=== PATIENT | female | born 1965 | race Caucasian/White ===

== ENCOUNTER 2018-01-17 14:46 | Emergency (ER) | payer OTHER ==
[~2018-01-17] VITALS: Ht 162.6 cm; Wt 113.6 kg
[2018-01-17 14:56] VITALS: BP 140/70; PULSE 67; RESP 18; O2SAT 99
[2018-01-17] MEDS ORDERED: SODIUM CHLORIDE 0.9% FLUSH 10 ML FLUSH IVF PRN (15:00)
[2018-01-17 15:03] VITALS: BP 140/70; PULSE 66; RESP 18; TEMP 98.9; O2SAT 96
--- NOTE | 2018-01-17 15:26 | RADRPT ---
EXAM DATE: 01/17/2018 3:15 PM EDT AGE/SEX: 52 years / Female INDICATIONS: Chest pain, palpitations. CLINICAL DATA: This is the patient's initial encounter. Patient reports that signs and symptoms have been present for 1 day and indicates a pain score of 2/10. MEDICAL/SURGICAL HISTORY: Hypercholesterolemia. Hypertension. Gastroesophageal reflux disease . A-fib. section. COMPARISON: No prior exams available for comparison. FINDINGS: A single AP view of the chest demonstrates the lungs to be symmetrically aerated without evidence of mass, infiltrate or effusion. The cardiomediastinal contours are unremarkable. Osseous structures a re intact. CONCLUSION: No active disease. Electronically signed by: Russell Flores MD 01/17/2018 3:24 PM EDT
[2018-01-17 15:35] LABS: AUTOMATED NEUTROPHIL # 5.9 TH/MM3 (1.8-7.7); BASOPHIL # 0.1 TH/MM3 (0-0.2); BASOPHIL % 0.7 % (0.0-2.0); EOSINOPHIL # 0.5 TH/MM3 (0-0.4); EOSINOPHIL % 5.9 % (0.0-4.0); HEMOGLOBIN 14.1 GM/DL (11.6-15.3); LYMPH % 24.7 % (9.0-44.0); LYMPHOCYTE # 2.3 TH/MM3 (1.0-4.8); MEAN CELL VOLUME 96.1 FL (80.0-100.0); MEAN CORPUSCULAR HEMOGLOBIN 31.5 PG (27.0-34.0); MEAN CORPUSCULAR HGB CONC 32.7 % (32.0-36.0); MEAN PLATELET VOLUME 9.4 FL (7.0-11.0); MONO % 5.6 % (0.0-8.0); MONOCYTE # 0.5 TH/MM3 (0-0.9); NEUT % 63.1 % (16.0-70.0); PLATELET COUNT 213 TH/MM3 (150-450); RED BLOOD COUNT 4.47 MIL/MM3 (4.00-5.30); RED CELL DISTRIBUTION WIDTH 14.1 % (11.6-17.2); WHITE BLOOD COUNT 9.3 TH/MM3 (4.0-11.0)
[2018-01-17 16:00] LABS: PROTHROMBIN TIME - PATIENT 10.2 SEC (9.8-11.6)
[2018-01-17 16:10] LABS: ALKALINE PHOSPHATASE 66 U/L (45-117); TOTAL BILIRUBIN ADULT 0.6 MG/DL (0.2-1.0); TOTAL PROTEIN 7.8 GM/DL (6.4-8.2); TROPONIN I LESS THAN 0.02 NG/ML (0.02-0.05)
[2018-01-17 16:19] LABS: ALBUMIN 4.3 GM/DL (3.4-5.0); ALT (GPT) 48 U/L (10-53); AST (GOT) 32 U/L (15-37); BICARBONATE 20.5 MEQ/L (21.0-32.0); BLOOD UREA NITROGEN 18 MG/DL (7-18); CALCIUM 9.2 MG/DL (8.5-10.1); CHLORIDE 107 MEQ/L (98-107); GLOMERULAR FILTRATION RATE 37 ML/MIN (>89); GLUCOSE,RANDOM 160 MG/DL (74-106); MAGNESIUM 1.9 MG/DL (1.5-2.5); SODIUM (NA) 140 MEQ/L (136-145)
[2018-01-17 16:53] VITALS: BP 171/102; PULSE 118; RESP 18; O2SAT 97
--- NOTE | 2018-01-17 17:20 | PD ---
HPI Chief Complaint: Cardiac Complaint Time Seen by Provider: 14:53 Travel History International Travel<30 days: No Contact w/Intl Traveler<30days: No Traveled to known affect area: No History of Present Illness HPI Patient 52-year-old female presents emergency department for feeling of flushed and tingling particularly in her face and bilateral ex upper extremities which occurred just prior to arrival. Patient states she has history of atrial fibrillation and thinks that her heart rate is accelerated again. She would like to have her heart checked out. She states she has a history of hot flashes and this is more severe. Denies any true chest pain shortness of breath abdominal pain nausea vomiting diarrhea. Denies any headache. She is anticoagulated for atrial fibrillation is scheduled to have a cardioversion. Symptoms moderate, continuing in the ER, duration is just prior to arrival, context as above. PFSH Past Medical History Hx Anticoagulant Therapy: Yes Atrial Fibrillation: Yes Heart Rhythm Problems: Yes Cardiovascular Problems: Yes High Cholesterol: Yes Diabetes: Yes Patient Takes Glucophage: Yes GERD: Yes Hypertension: Yes ?: Not Social History Alcohol Use: Yes Tobacco Use: Yes Substance Use: No Allergies-Medications (Allergen,Severity, Reaction): Coded Allergies: No Known Allergies (Verified Allergy, Unknown, 04/05/03) Reported Meds & Prescriptions Reported Meds & Active Scripts Active Reported Amiodarone (Amiodarone HCl) 200 Mg Tab 200 Mg PO DAILY Eliquis (Apixaban) 5 Mg Tab 5 Mg PO BID Acyclovir 800 Mg Tab 800 Mg PO DAILY Ambien (Zolpidem Tartrate) 10 Mg Tab 10 Mg PO HS Atorvastatin (Atorvastatin Calcium) 20 Mg Tab 20 Mg PO HS Omeprazole 20 Mg Tab 20 Mg PO DAILY Losartan (Losartan Potassium) 50 Mg Tab 50 Mg PO BID Metoprolol Tartrate 50 Mg Tab 50 Mg PO BID Tradjenta (Linagliptin) 5 Mg Tab 5 Mg PO DAILY Metformin (Metformin HCl) 500 Mg Tab 1,000 Mg PO BID Farxiga (Dapagliflozin) 10 Mg Tab 10 Mg PO DAILY Norvasc (Amlodipine Besylate) 5 Mg Tab 5 Mg PO DAILY Review of Systems Except as stated in HPI: all other systems reviewed are Neg Physical Exam Narrative GENERAL: Well-developed well-nourished feeding herself in no obvious distress, face flushed. SKIN: Focused skin assessment warm/dry. HEAD: Atraumatic. Normocephalic. EYES: Pupils equal and round. No scleral icterus. No injection or drainage. ENT: No nasal bleeding or discharge. Mucous membranes pink and moist. NECK: Trachea midline. No JVD. CARDIOVASCULAR: Regular rate and rhythm. No murmur appreciated. RESPIRATORY: No accessory muscle use. Clear to auscultation. Breath sounds equal bilaterally. GASTROINTESTINAL: Abdomen soft, non-tender, nondistended. Hepatic and splenic margins not palpable. MUSCULOSKELETAL: No obvious deformities. No clubbing. No cyanosis. No edema. NEUROLOGICAL: Awake and alert. No obvious cranial nerve deficits. Motor grossly within normal limits. Normal speech. PSYCHIATRIC: Appropriate mood and affect; insight and judgment normal. Data Data Last Documented VS Vital Signs Date Time Temp Pulse Resp B/P (MAP) Pulse Ox O2 Delivery O2 Flow Rate FiO2 01/17/18 19:42 01/17/18 17:31 97 Room Air 01/17/18 16:53 118 18 01/17/18 15:03 98.9 Orders Orders Ckmb (Isoenzyme) Profile (01/17/18 14:54) Complete Blood Count With Diff (01/17/18 14:54) Comprehensive Metabolic Panel (01/17/18 14:54) Magnesium (Mg) (01/17/18 14:54) Prothrombin Time / Inr (Pt) (01/17/18 14:54) Act Partial Throm Time (Ptt) (01/17/18 14:54) Troponin I (01/17/18 14:54) Chest, Single Ap (01/17/18 14:54) Ecg Monitoring (01/17/18 14:54) Iv Access Insert/Monitor (01/17/18 14:54) Oximetry (01/17/18 14:54) Oxygen Administration (01/17/18 14:54) Sodium Chloride 0.9% Flush (Ns Flush) (01/17/18 15:00) Electrocardiogram (01/17/18 ) Thyroid Stimulating Hormone (01/17/18 15:39) CKMB (01/17/18 15:21) CKMB% (01/17/18 15:21) Diltiazem (Cardizem) (01/17/18 18:00) Electrocardiogram (01/17/18 17:38) Ed Discharge Order (01/17/18 19:10) Labs Laboratory Tests Test 01/17/18 15:21 White Blood Count 9.3 TH/MM3 Red Blood Count 4.47 MIL/MM3 Hemoglobin 14.1 GM/DL Hematocrit 43.0 % Mean Corpuscular Volume 96.1 FL Mean Corpuscular Hemoglobin 31.5 PG Mean Corpuscular Hemoglobin Concent 32.7 % Red Cell Distribution Width 14.1 % Platelet Count 213 TH/MM3 Mean Platelet Volume 9.4 FL Neutrophils (%) (Auto) 63.1 % Lymphocytes (%) (Auto) 24.7 % Monocytes (%) (Auto) 5.6 % Eosinophils (%) (Auto) 5.9 % Basophils (%) (Auto) 0.7 % Neutrophils # (Auto) 5.9 TH/MM3 Lymphocytes # (Auto) 2.3 TH/MM3 Monocytes # (Auto) 0.5 TH/MM3 Eosinophils # (Auto) 0.5 TH/MM3 Basophils # (Auto) 0.1 TH/MM3 CBC Comment DIFF FINAL Differential Comment Prothrombin Time 10.2 SEC Prothromb Time International Ratio 1.0 RATIO Activated Partial Thromboplast Time 29.3 SEC Blood Urea Nitrogen 18 MG/DL Creatinine 1.50 MG/DL Random Glucose 160 MG/DL Total Protein 7.8 GM/DL Albumin 4.3 GM/DL Calcium Level 9.2 MG/DL Magnesium Level 1.9 MG/DL Alkaline Phosphatase 66 U/L Aspartate Amino Transf (AST/SGOT) 32 U/L Alanine Aminotransferase (ALT/SGPT) 48 U/L Total Bilirubin 0.6 MG/DL Sodium Level 140 MEQ/L Potassium Level 4.5 MEQ/L Chloride Level 107 MEQ/L Carbon Dioxide Level 20.5 MEQ/L Anion Gap 13 MEQ/L Estimat Glomerular Filtration Rate 37 ML/MIN Total Creatine Kinase 108 U/L Creatine Kinase MB 0.8 NG/ML Troponin I LESS THAN 0.02 NG/ML Thyroid Stimulating Hormone 3rd Gen 1.840 uIU/ML [facility] Medical Decision Making Medical Screen Exam Complete: Yes Emergency Medical Condition: Yes Differential Diagnosis Hot flashes, atrial fibrillation, arrhythmia, ACS seems unlikely, OR seems unlikely, electrolyte abnormality, hyperthyroidism. Narrative Course Patient room to the emergency department, troponin negative, EKG actually shows sinus rhythm. Sometime after admitted to the hospital patient had atrial fibrillation with increased heart rate, given Cardizem p.o. which controlled her heart rate. She is on amiodarone at home. She appears quite comfortable and her symptoms have resolved. Discussed that she certainly could have a very atypical ACS presentation but I think that she could follow-up with fuel conversion technician rather than be admitted for stress testing so she was offered admission and she would prefer to go home. I will not adjust her home medications here. Discussed return to ED criteria. She is stable for discharge. Diagnosis Primary Impression: Atrial fibrillation Disposition: 01 DISCHARGE HOME Condition: Stable Raimundo Locke MD Jan 17, 2018 17:20
[2018-01-17] MEDS ORDERED: DILTIAZEM HCL 30 MG TAB PO ONE (18:00)
[2018-01-17] MEDS ORDERED: ACYC800T PO (18:16)
[2018-01-17] MEDS ORDERED: AMLO5 PO (18:16)
[2018-01-17] MEDS ORDERED: DAPA1TAB3 PO (18:16)
[2018-01-17] MEDS ORDERED: LOSA50TA PO (18:16)
[2018-01-17] MEDS ORDERED: TRAD5TAB PO (18:16)
[2018-01-17] MEDS ORDERED: ATOR20TA15 PO (18:16)
[2018-01-17] MEDS ORDERED: AMBI10TA PO (18:16)
[2018-01-17] MEDS ORDERED: METF500T PO (18:16)
[2018-01-17] MEDS ORDERED: METO50TA PO (18:16)
[2018-01-17] MEDS ORDERED: AMIO200T PO (18:16)
[2018-01-17] MEDS ORDERED: OMEP20TA93 PO (18:16)
[2018-01-17] MEDS ORDERED: APIX5TAB PO (18:16)
--- NOTE | 2018-01-18 13:52 | EKG ---
Date Performed: 01/17/2018 Time Performed: 14:59:20 PTAGE: 52 years EKG: Sinus rhythm POSSIBLE LEFT ATRIAL ENLARGEMENT MARKED LEFT AXIS DEVIATION POSSIBLE RIGHT VENTRICULAR CONDUCTION DE LAY ABNORMAL ECG NO PREVIOUS TRACING DOCTOR: Landen Omalley Interpretating Date/Time 01/18/2018 13:50:51
--- NOTE | 2018-01-18 14:15 | EKG ---
Date Performed: 01/17/2018 Time Performed: 17:38:06 PTAGE: 52 years EKG: ATRIAL FIBRILLATION WITH RAPID VENTRICULAR RESPONSE MARKED LEFT AXIS DEVIATION PATTERN CONS ISTENT WITH PULMONARY DISEASE MODERATE ST DEPRESSION ABNORMAL ECG Compared to PREVIOUS TRACING , atrial fibrillation is new. PREVIOUS TRACIN01/17/2018 14.59 DOCTOR: Landen Omalley Interpretating Date/Time 01/18/2018 14:14:05
== END 2018-01-17 19:43 | disposition home or self-care (01) ==
LOC: NEPE 14:46
DX: I48.91 Unspecified atrial fibrillation (principal); E78.00 Pure hypercholesterolemia, unspecified; E11.9 Type 2 diabetes mellitus without complications; I10 Essential (primary) hypertension; Z72.0 Tobacco use; Z79.84 Long term (current) use of oral hypoglycemic drugs
CPT/HCPCS: 71045; 80053; 82550; 82552; 83735; 84443; 84484; 85025; 85610; 85730; 93005